=== PATIENT | male | born 1940 | race Caucasian/White ===

== ENCOUNTER 2016-05-07 14:53 | Emergency (ER) | payer MEDICARE | END 2016-05-07 17:32 | disposition home or self-care (01) | DX: R05 Cough (principal); I25.10 Atherosclerotic heart disease of native coronary artery without angina pectoris; E78.00 Pure hypercholesterolemia, unspecified; Z79.82 Long term (current) use of aspirin ==

== ENCOUNTER 2016-05-27 07:10 | Emergency (ER) | payer MEDICARE ==
[2016-05-27] MEDS ORDERED: SODIUM CHLORIDE 0.9% 1,000 ML IV ONE (07:28)
[2016-05-27] MEDS ORDERED: MORPHINE 2 MG/ML SYRINGE IVP STA (07:29)
[2016-05-27] MEDS ORDERED: MORPHINE 2 MG/ML SYRINGE ONE (07:30)
[2016-05-27] MEDS: IOPAMIDOL-300 100 ML VIAL IVP ONE ×2 (08:45→10:24)
== END 2016-05-27 09:45 | disposition home or self-care (01) ==
DX: M54.6 Pain in thoracic spine (principal)
CPT/HCPCS: 36415; 71010; 74177; 80053; 83690; 85025; 96374; 99283; 99284; Q9967

== ENCOUNTER 2017-03-28 14:53 | Emergency (ER) | payer MEDICARE ==
--- NOTE | 2017-03-28 15:05 | ED Physician Documentation ---
PD HPI UPPER EXT INJURY - Stated complaint Stated Complaint: R ARM INJ - History obtained from History obtained from: Patient - History of Present Illness Location: Other (He was not very far up on a ladder installing [place] lights , ladder became unsteady and he fell on outstretched right arm with an isolated right shoulder injury. He has no other injuries. No head injury.) Review of Systems Constitutional: reports: Reviewed and negative Cardiac: reports: Reviewed and negative Respiratory: reports: Reviewed and negative GI: reports: Reviewed and negative PD PAST MEDICAL HISTORY - Past Medical History Cardiovascular: High cholesterol, Coronary artery disease - Past Surgical History Past Surgical History: Yes General: Appendectomy, Colonoscopy Cardiovascular: Vascular surgery HEENT: Tonsil/Adenoidectomy - Present Medications Home Medications: Ambulatory Orders Medication Instructions Recorded Confirmed Aspirin [Aspir-Low] 81 mg PO DAILY 05/07/16 03/28/17 Pravastatin [Pravachol] 80 mg PO DAILY 05/07/16 03/28/17 HYDROcod/ACETAM 5/325 [Truro 5/325] 1 - 2 ea PO Q6H PRN #15 tablet 03/28/17 - Allergies Allergies/Adverse Reactions: Allergies Allergy/AdvReac Type Severity Reaction Status Date / Time No Known Drug Allergies Allergy Verified 03/28/17 15:18 - Social History Does the pt smoke?: No Smoking Status: Never smoker Does the pt drink ETOH?: No Does the pt have substance abuse?: No - Immunizations Immunizations are current?: Yes PD ED PE NORMAL - Vitals Vital signs reviewed: Yes - General General: Alert and oriented X 3, No acute distress - HEENT HEENT: PERRL, EOMI - Neck Neck: Supple, no meningeal sign, No bony TTP - Cardiac Cardiac: RRR, No murmur - Respiratory Respiratory: No respiratory distress, Clear bilaterally - Abdomen Abdomen: Normal bowel sounds, Soft, Non tender - Extremities Extremities: Other (Cleared deformity of the right shoulder consistent with an inferior right shoulder dislocation and a palpable step-off at the glenohumeral joint with normal sensation over the deltoid and in all parts of the right hand. ) - Neuro Neuro: Alert and oriented X 3 Eye Opening: Spontaneous Motor: Obeys Commands Verbal: Oriented GCS Score: 15 - Psych Psych: Normal mood Results - Vitals Vitals: Vital Signs - 24 hr 12/06/1303/28/17 03/28/17 15:04 15:52 16:02 Temperature 36.7 C Heart Rate 81 75 71 Respiratory 20 14 14 Rate Blood Pressure 135/84 H 101/57 L 120/69 O2 Saturation 96 94 93 03/28/17 03/28/17 03/28/17 16:05 16:27 16:50 Temperature Heart Rate 84 69 68 Respiratory 15 14 Rate Blood Pressure 120/69 126/75 O2 Saturation 94 97 Oxygen O2 Source Room air - Rads (name of study) R shoulder Radiology: EMP read contemporaneously (Anterior shoulder dislocation) R shoulder post reduction Radiology: EMP read contemporaneously (Normal alignment with mild calcific tendinitis) Procedures - Reduction Body part reduced: Right, Shoulder Fracture or dislocation: Dislocation Shoulder reduction technique: [place] / ext rotation Reduction aftercare: NV intact, Xray confirms reduction, Alignment improved, Sling - Procedural sedation Sedation prep: Informed consent, Time out completed, Last meal (11am), PE performed, AHA 1 - healthy Sedation medications: propofol (80mg IVP x 1), Other (also 10ml of 0.5marcaine intraarticular after chloraprep) Patient status during sedation: Responds to tactile. No: Respiratory depression , Hypoxia, Needed resp assistance Sedation recovery: Recovered uneventfully Departure - Departure Disposition: 01 Home, Self Care Clinical Impression: Dislocation of right shoulder joint Qualifiers: Encounter type: initial encounter Qualified Code(s): S43.004A - Unspecified dislocation of right shoulder joint, initial encounter Fall from ladder Qualifiers: Encounter type: initial encounter Qualified Code(s): W11.XXXA - Fall on and from ladder, initial encounter Condition: Good Record reviewed to determine appropriate education?: Yes Instructions: ED Dislocation Shoulder Redu Follow-Up: [facility] [Provider Group] - Within 1 week Prescriptions: HYDROcod/ACETAM 5/325 [Truro 5/325] 1 - 2 ea PO Q6H PRN #15 tablet PRN Reason: Pain Comments: Do not drink or drive while taking narcotic pain medication. Note that many narcotic pain relievers also contain Tylenol/acetaminophen. Please ensure that your total dose of acetaminophen from all sources does not exceed 3 g (3000 mg) per day. You may get constipated while on this medication. Take a stool softener such as Colace twice a day while you are on it. Also add an jyjy-rtn-wkendyu laxative such as senna or MiraLAX on any day that you do not have a bowel movement. If you received a narcotic pain medication or sedative while in the emergency department, do not drive for the next 24 hours. Discharge Date/Time: 03/28/17 16:50
[2017-03-28] MEDS ORDERED: BUPIVACAINE 0.5% PF 30 ML VIAL ONE (15:06)
[2017-03-28] MEDS ORDERED: MORPHINE 10 MG/ML VIAL IVP STA (15:11)
[2017-03-28] MEDS ORDERED: MORPHINE 10 MG/ML VIAL ONE (15:22)
[2017-03-28] MEDS ORDERED: PROPOFOL 200 MG/20 ML VIAL IVP ONE (15:32)
[2017-03-28] MEDS ORDERED: PROPOFOL 200 MG/20 ML VIAL IVP STA (15:51)
[2017-03-28 16:51] VITALS: BP 126/75
--- NOTE | 2017-03-28 16:52 | XRAY Preliminary Report ---
Exam: XR SHOULDER 2 VIEW RT IMPRESSION: Anterior shoulder dislocation. [facility] SITE ID: [id number]
--- NOTE | 2017-03-28 16:53 | XRAY Preliminary Report ---
Exam: XR SHOULDER 2 VIEW RT IMPRESSION: 1. Normal alignment post reduction. 2. Mild calcific tendinitis. [facility] SITE ID: [id number]
--- NOTE | 2017-03-28 16:54 | XRAY Report ---
EXAM: RIGHT SHOULDER RADIOGRAPHY EXAM DATE: 03/28/2017 03:26 PM. CLINICAL HISTORY: Fall. Shoulder injury. Pain. COMPARISON: None. TECHNIQUE: 2 views. FINDINGS: Bones: Normal. No fracture or bone lesion. Joints: The humeral head is anterior to the glenoid, inferior to the coracoid process. The acromiocla vicular joint is normally aligned. Soft tissues: The visualized hemithorax is unremarkable. No soft tissue swelling. IMPRESSION: Anterior shoulder dislocation. [facility] Referring Provider Line: [phone] SITE ID: [id number]
--- NOTE | 2017-03-28 16:56 | XRAY Report ---
EXAM: RIGHT SHOULDER RADIOGRAPHY EXAM DATE: 03/28/2017 04:33 PM. CLINICAL HISTORY: Post reduction. COMPARISON: Today at 1513. TECHNIQUE: 2 views. FINDINGS: Bones: Normal. No fracture or bone lesion. Joints: Glenohumeral alignment restored. Mild degenerative changes of the acromioclavicular joint. Soft tissues: Soft tissue calcification next to the humeral head. IMPRESSION: 1. Normal alignment post reduction. 2. Mild calcific tendinitis. [facility] Referring Provider Line: [phone] SITE ID: [id number]
== END 2017-03-28 16:50 | disposition home or self-care (01) ==
LOC: ED 14:53
DX: S43.014A Anterior dislocation of right humerus, initial encounter (principal); W11.XXXA Fall on and from ladder, initial encounter; Y92.019 Unspecified place in single-family (private) house as the place of occurrence of the external cause; E78.00 Pure hypercholesterolemia, unspecified; I25.10 Atherosclerotic heart disease of native coronary artery without angina pectoris; Z79.82 Long term (current) use of aspirin
CPT/HCPCS: 23650; 94770; 96374; 99283; 99284

== ENCOUNTER 2017-04-02 07:07 | Emergency (ER) | payer MEDICARE ==
[2017-04-02 07:15] VITALS: BP 133/79
[2017-04-02] MEDS ORDERED: HYDROcod/ACETAM 5/325 MG TABLET PO STA (07:42)
--- NOTE | 2017-04-02 07:48 | ED Physician Documentation ---
PD HPI NECK PAIN - Stated complaint Stated Complaint: NECK PX - Chief complaint Chief Complaint: General - History obtained from History obtained from: Patient, Family (spouse) - History of Present Illness Timing - onset: Yesterday Timing - details: Still present Location: Mid, Right Quality: Pain, Spasm Associated symptoms: No: Fever, Weakness, Numbness Worsened by: Movement, Twisting Contributing factors: Trauma (Fell off ladder five days ago.) Similar symptoms before: Has not had sx before Recently seen: Emergency Dept (Was seen here in ED five days ago after falling off ladder. Was treated for right anterior shoulder dislocation.) - Treatment prior to arrival Treatment prior to arrival: Ibuprophen 600 mg q 6 hrs. - Additional information Additional information: The patient is a 76-year-old male who presents with neck pain that started yesterday and persists today. He is unable to turn his head because of the pain. He fell off a ladder while hanging [place] lights 5 days ago. He was seen here and was treated for right anterior shoulder dislocation. He did not have evidence of cervical spine injury based on physical exam at that time. He was seen by orthopedics in clinic yesterday for follow-up. He denies history of prior episodes of neck pain. He is right-hand dominant. He denies numbness or weakness. Review of Systems Constitutional: denies: Fever Nose: denies: Congestion Throat: denies: Sore throat Cardiac: denies: Chest pain / pressure Respiratory: denies: Dyspnea, Cough GI: denies: Abdominal Pain, Nausea, Vomiting : denies: Dysuria Skin: denies: Rash Musculoskeletal: reports: Neck pain, Joint pain (right shoulder). denies: Back pain Neurologic: denies: Focal weakness, Numbness, Headache PD PAST MEDICAL HISTORY - Past Medical History Cardiovascular: High cholesterol, Coronary artery disease Respiratory: None Neuro: None Endocrine/Autoimmune: None - Past Surgical History Past Surgical History: Yes General: Appendectomy, Colonoscopy Cardiovascular: Vascular surgery HEENT: Tonsil/Adenoidectomy - Present Medications Home Medications: Ambulatory Orders Medication Instructions Recorded Confirmed Aspirin [Aspir-Low] 81 mg PO DAILY 05/07/16 03/28/17 Pravastatin [Pravachol] 80 mg PO DAILY 05/07/16 03/28/17 Cyclobenzaprine [Flexeril] 10 mg PO TID PRN #20 tablet 04/02/17 Ibuprofen [Advil] 600 mg PO Q6H 04/02/17 04/02/17 - Allergies Allergies/Adverse Reactions: Allergies Allergy/AdvReac Type Severity Reaction Status Date / Time No Known Drug Allergies Allergy Verified 04/02/17 07:15 - Living Situation Living Situation: reports: With spouse/s.o. Living Arrangement: reports: At home - Social History Does the pt smoke?: No Smoking Status: Never smoker Does the pt drink ETOH?: No Does the pt have substance abuse?: No - Immunizations Immunizations are current?: Yes - POLST Patient has POLST: No PD ED PE NORMAL - Vitals Vital signs reviewed: Yes (borderline hypertension) - General General: Alert and oriented X 3, Well developed/nourished - HEENT HEENT: Atraumatic - Neck Neck: No bony TTP, No JVD, Other (Tenderness to palpation right paracervical musculature, with spasms.) - Cardiac Cardiac: RRR, No murmur - Respiratory Respiratory: No respiratory distress, Clear bilaterally - Abdomen Abdomen: Soft, Non tender - Back Back: No CVA TTP - Derm Derm: No rash - Extremities Extremities: No edema, Other (Right arm is in an arm sling. There is tenderness to palpation along the right anterior joint line of the shoulder.) - Neuro Neuro: Alert and oriented X 3, No motor deficit, No sensory deficit Results - Vitals Vitals: Oxygen O2 Source Room air - Rads (name of study) C-spine xrays Radiology: Prelim report reviewed, EMP read contemporaneously, See rad report ( No fracture evident. Mild to moderate degenerative changes.) PD MEDICAL DECISION MAKING - ED course Complexity details: reviewed old records, reviewed results, re-evaluated patient , considered differential, d/w patient, d/w family ED course: The patient's presentation is most consistent with cervical muscular spasm. This is most likely associated with his recent shoulder injury and wearing of an arm sling. X-rays of the cervical spine reveal no acute bony abnormality, but mild to moderate degenerative changes. Treatment in the emergency department included administration of Vicodin one tablet orally. He is being discharged with a prescription for Flexeril. I discussed with him and his the expected course of symptoms, outpatient treatment and follow-up, as well as potentially worrisome signs or symptoms that should prompt reevaluation in the emergency department. Departure - Departure Disposition: 01 Home, Self Care Clinical Impression: Cervical strain, acute Qualifiers: Encounter type: initial encounter Qualified Code(s): S16.1XXA - Strain of muscle, fascia and tendon at neck level, initial encounter Condition: Stable Instructions: ED Sprain Strain Neck Follow-Up: Kay Neal MD [Primary Care Provider] - Prescriptions: Cyclobenzaprine [Flexeril] 10 mg PO TID PRN #20 tablet PRN Reason: Spasms Comments: Continue taking ibuprofen, up to 4 times daily for its anti-inflammatory effect. You can fill the prescription for Vicodin that was previously written. You can use Flexeril as prescribed as needed for muscle relaxer. Follow up with your primary physician within 2 weeks. Call to schedule an appointment. Return to the emergency department if you develop increasing pain, fever, numbness or weakness, or otherwise worsening symptoms. Discharge Date/Time: 04/02/17 09:13
[2017-04-02] MEDS ORDERED: HYDROcod/ACETAM 5/325 MG TABLET ONE (07:56)
--- NOTE | 2017-04-02 08:32 | XRAY Preliminary Report ---
Exam: XR CERVICAL SPINE 2 VIEW IMPRESSION: 1. No fracture evident. 2. Mild to moderate degenerative changes. [facility] SITE ID: [id number]
--- NOTE | 2017-04-02 08:35 | XRAY Report ---
EXAM: CERVICAL SPINE RADIOGRAPHY EXAM DATE: 04/02/2017 08:10 AM. CLINICAL HISTORY: Neck pain after fall from ladder. COMPARISONS: None. TECHNIQUE: 3 views. 5 films FINDINGS: Alignment: Upper thoracic scoliosis. Minimal grade 1 anterolisthesis of C4 on C5 vertebral body. Bones: The cervical vertebral bodies and posterior elements are well visualized from the skull base t hrough C7-T1. No fractures or bone lesions. Disks: Moderate loss of disk space height at C5-C6 and C6-C7 levels. Facets: No degenerative disease. Soft Tissues: Normal. No prevertebral soft tissue swelling. The visualized lung apices are clear. IMPRESSION: 1. No fracture evident. 2. Mild to moderate degenerative changes. [facility] Referring Provider Line: [phone] SITE ID: [id number]
== END 2017-04-02 09:13 | disposition home or self-care (01) ==
LOC: ED 07:07
DX: S16.1XXA Strain of muscle, fascia and tendon at neck level, initial encounter (principal); W11.XXXA Fall on and from ladder, initial encounter; Y92.019 Unspecified place in single-family (private) house as the place of occurrence of the external cause; E78.00 Pure hypercholesterolemia, unspecified; I25.10 Atherosclerotic heart disease of native coronary artery without angina pectoris; Z79.82 Long term (current) use of aspirin
CPT/HCPCS: 72040; 99283; A9270

== ENCOUNTER 2017-06-04 12:56 | Outpatient (CLI) | payer MEDICARE ==
--- NOTE | 2017-06-04 18:21 | MRI Report ---
EXAM: RIGHT SHOULDER MRI WITHOUT CONTRAST EXAM DATE: 06/04/2017 01:45 PM. CLINICAL HISTORY: Right shoulder dislocation. Shoulder pain. COMPARISON: Plain x-rays 03/28/2017. TECHNIQUE: Multiplanar, multisequence T1-weighted and fluid-sensitive sequences of the shoulder witho ut contrast. Other: None. FINDINGS: Acromioclavicular Region: The acromion is type I unipartite. 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 T he coracoacromial and coracoclavicular ligaments are intact. Moderate amount of bursal fluid. Glenohumeral Region: No subluxation. Small joint effusion. Loose body is seen in the posterior glenoh umeral joint on axial image 17. The articular cartilage is unremarkable. Inferior glenohumeral ligame nt is somewhat edematous. Middle and superior glenohumeral ligaments are visualized although slightly edematous. Bone Marrow: There is a focal region of marrow edema at the superior lateral aspect of the humeral he ad with a small amount of impaction injury present. Series 701 image 19, series 501 image 13. Labrum: Inferior labrum is somewhat difficult to assess, there is likely a focal tear of the inferior labrum on series 501 image 9. The inferior glenohumeral ligament is also somewhat edematous. Musculature/Rotator Cuff: Focal full-thickness tear distal supraspinatus with debris-filled gap measu ring about 3.4 cm. Series 501 image 10. Infraspinatus shows some edema but is intact, subscapularis l ikewise shows some tendinopathy. Teres minor is normal. A generous amount of swelling and edema is se en in the proximal aspect of the supraspinatus and infraspinatus muscle bundles. Biceps Tendon: Long head of biceps tendon is perched at the medial border of the bicipital groove, no vertical split or full-thickness tears. Other: The subcutaneous tissues are unremarkable. IMPRESSION: 1. Type I unipartite undersurface osseous acromion shape. 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 Mode rate amount of bursal fluid is present. 2. Small joint effusion. Loose bodies in the posterior glenohumeral joint. Inferiorly the glenohumera l joint is somewhat edematous, probably partially torn. 3. Inferior labrum also is difficult to assess, likely partially or full-thickness tear present. 3. Focal region of marrow edema and an osteocartilaginous impaction injury superior aspect of the hum eral head. 5. Full-thickness tear distal supraspinatus with a debris-filled gap measuring about 3.4 cm. Generous amount of swelling and edema seen in the proximal aspect of the supraspinatus and infraspinatus musc le bundles. 6. Long head of biceps tendon is perched at the medial border of the bicipital groove, no vertical sp lit or full-thickness tears are noted. [facility] MUSCULOSKELETAL [facility] SE[facility] Referring Provider Line: [phone] SITE ID: [id number]
== END 2017-06-04 12:57 | disposition home or self-care (01) ==
LOC: DI 12:56
PROVIDERS: ATTEND Orthopaedic Surgery
DX: S49.81XA Other specified injuries of right shoulder and upper arm, initial encounter (principal); M75.101 Unspecified rotator cuff tear or rupture of right shoulder, not specified as traumatic; M19.011 Primary osteoarthritis, right shoulder; M24.011 Loose body in right shoulder

== ENCOUNTER 2023-06-24 08:07 | Emergency (ER) | payer MEDICARE ==
[2023-06-24 08:24] VITALS: BP 139/74; O2SAT 98
[2023-06-24 09:01] LABS: RAPID STREP SCREEN Negative (Negative)
--- NOTE | 2023-06-24 09:02 | ED Physician Documentation ---
PD HPI HEENT - Stated complaint Stated Complaint: THROAT PX - Chief complaint Chief Complaint: Heent - History obtained from History obtained from: Patient - Additional information Additional information: Patient is an 83-year-old male presenting for evaluation of a sore throat that started last night. His is here with URI symptoms that been ongoing for 10 days. Since she was getting checked out today he felt he should also be evaluated. No fever. Slight nasal congestion. Has not taken a COVID test. No chest pain, shortness of air or cough. Tolerating p.o. intake without any difficulty. No vomiting or diarrhea. Review of Systems Constitutional: denies: Fever Nose: reports: Congestion Throat: reports: Sore throat Cardiac: denies: Chest pain / pressure Respiratory: denies: Dyspnea, Cough GI: denies: Abdominal Pain, Vomiting Neurologic: denies: Headache PD PAST MEDICAL HISTORY - Past Medical History Past Medical History: Yes Cardiovascular: High cholesterol, Coronary artery disease Respiratory: None Endocrine/Autoimmune: None - Past Surgical History Past Surgical History: Yes General: Appendectomy, Colonoscopy Cardiovascular: Vascular surgery HEENT: Tonsil/Adenoidectomy - Present Medications Home Medications: Ambulatory Orders Medication Instructions Recorded Confirmed Aspirin [Aspir-Low] 81 mg PO DAILY 05/07/16 06/24/23 Pravastatin [Pravachol] 80 mg PO DAILY 05/07/16 06/24/23 Ibuprofen [Advil] 600 mg PO Q6H 04/02/17 06/24/23 Omeprazole 20 mg PO PRN PRN 06/24/23 06/24/23 - Allergies Allergies/Adverse Reactions: Allergies Allergy/AdvReac Type Severity Reaction Status Date / Time No Known Drug Allergies Allergy Verified 06/24/23 08:17 - Social History Does the pt smoke?: No Smoking Status: Never smoker Does the pt drink ETOH?: No Does the pt have substance abuse?: No - Immunizations Immunizations are current?: Yes - POLST Patient has POLST: No PD ED PE NORMAL - General General: Alert and oriented X 3, No acute distress, Well developed/nourished - HEENT HEENT: Atraumatic, Moist mucous membranes, Pharynx benign (No oral swelling, erythema or exudate) - Neck Neck: Supple, no meningeal sign - Cardiac Cardiac: RRR, Strong equal pulses - Respiratory Respiratory: No respiratory distress, Clear bilaterally - Derm Derm: Warm and dry - Neuro Neuro: Normal speech Results - Vitals Vitals: Vital Signs - 24 hr 06/24/23 08:15 Temperature 36.2 C L Heart Rate 74 Respiratory 16 Rate Blood Pressure 139/74 H O2 Saturation 98 Oxygen O2 Source Room air - Labs Labs: Laboratory Tests 06/24/23 06/24/23 08:35 08:35 Nasal Adenovirus (PCR) NOT DETECTED Nasal B. parapertussis DNA (PCR) NOT DETECTED Nasal Coronavir 229E PCR NOT DETECTED Nasal Coronavir HKU1 PCR NOT DETECTED Nasal Coronavir NL63 PCR NOT DETECTED Nasal Coronavir OC43 PCR NOT DETECTED Nasal Enterovir/Rhinovir PCR NOT DETECTED Nasal Influenza B PCR NOT DETECTED Nasal Influenza A PCR NOT DETECTED Nasal Parainfluen 1 PCR NOT DETECTED Nasal Parainfluen 2 PCR NOT DETECTED Nasal Parainfluen 3 PCR NOT DETECTED Nasal Parainfluen 4 PCR NOT DETECTED Nasal RSV (PCR) NOT DETECTED Nasal B.pertussis DNA PCR NOT DETECTED Nasal C.pneumoniae (PCR) NOT DETECTED Manolo Human Metapneumo PCR NOT DETECTED Nasal M.pneumoniae (PCR) NOT DETECTED Nasal SARS-CoV-2 (PCR) NOT DETECTED Group A Strep Rapid Negative PD Medical Decision Making - ED course ED course: Patient with sore throat for 1 day. here with URI symptoms. Vital signs are stable. No signs of deep space infection on exam. He is well-appearing, tolerating p.o. Rapid strep is negative. Respiratory swab is pending. Patient counseled on continued supportive care as well as concerning symptoms to return for. Departure - Departure Disposition: 01 Home, Self Care Clinical Impression: Pharyngitis, Upper respiratory infection Condition: Stable Instructions: ED Pharyngitis Viral Comments: Your strep test is negative. We will also send this for culture and notify you if this is abnormal and you need an antibiotic. Your respiratory panel is pending. This will check for COVID, influenza, RSV and a number of other common cold viruses. We will notify you if it is positive for COVID. Otherwise you can check the patient portal for your results. You should quarantine from others until you know your COVID result. Please continue with acetaminophen or ibuprofen as needed for fevers and body aches, plenty of fluids/hydration, Saline spray in the nose to help loosen congestion or steam from a warm shower and rest. Return to the ER with any worsening symptoms such as difficulty breathing or vomiting. Forms: PCP List Discharge Date/Time: 06/24/23 09:22
[2023-06-24 09:46] LABS: B. PARAPERTUSSIS- RESP PCR PAN NOT DETECTED; B. PERTUSSIS- RESP PCR PANEL NOT DETECTED; C. PNEUMONIAE- RESP PCR PANEL NOT DETECTED; CORONAVIRUS 229E-RESP PCR NOT DETECTED; CORONAVIRUS HKU1-RESP PCR NOT DETECTED; CORONAVIRUS NL63-RESP PCR NOT DETECTED; CORONAVIRUS OC43-RESP PCR NOT DETECTED; HUMAN METAPNEUMOVIRUS NOT DETECTED; INFLUENZA A- RESP PCR PANEL NOT DETECTED; INFLUENZA B - RESP PCR PANEL NOT DETECTED; M. PNEUMONIAE- RESP PCR PANEL NOT DETECTED; PARAINFLUENZA VIRUS 1 NOT DETECTED; PARAINFLUENZA VIRUS 2 NOT DETECTED; PARAINFLUENZA VIRUS 3 NOT DETECTED; PARAINFLUENZA VIRUS 4 NOT DETECTED; RHINOVIRUS/ENTEROVIRUS NOT DETECTED; RSV- RESP PCR PANEL NOT DETECTED; SARS-CoV-2 -RESP PCR PANEL NOT DETECTED
== END 2023-06-24 09:22 | disposition home or self-care (01) ==
LOC: ED 08:07
DX: J02.9 Acute pharyngitis, unspecified (principal); J06.9 Acute upper respiratory infection, unspecified
CPT/HCPCS: 87070; 87430; 87633; 99283